=== PATIENT | female | born 1950 | race Hispanic/Latino ===

== ENCOUNTER 2022-10-10 23:07 | Inpatient (IN) | payer OTHER ==
[2022-10-10] MEDS ORDERED: Boostrix 0.5 ML (Tdap) VIAL (>/=7 yrs of age) ONE (23:42)
[2022-10-10] MEDS ORDERED: Morphine 4 MG/ML VIAL ONE (23:42)
[2022-10-10] MEDS ORDERED: Ondansetron PF 4 MG/2 ML Vial ONE (23:42)
[2022-10-11 00:27] LABS: #Basophils 0.1 thou/uL (0.0-0.2); #Eosinphils 0.1 thou/uL (0.0-0.7); #Lymphocytes 1.8 thou/uL (1.20-3.40); #Monocytes 0.5 thou/uL (0.11-0.59); #Neutrophils 7.5 thou/uL (1.40-6.50); %Basophils 0.6 % (0.0-1.0); %Eosinophils 1.3 % (0.0-10.0); %Lymphocytes 18.3 % (21.0-51.0); %Monocytes 4.6 % (0.0-10.0); %Neutrophils 75.2 % (42.0-75.0); Hemoglobin 14.1 g/dL (12.0-16.0); Mean Corpuscular HGB CONC 33.5 g/dL (32.0-36.0); Mean Corpuscular Hemoglobin 33.8 pg (27.0-31.0); Mean Platelet Volume 6.9 fL (7.4-10.4); Platelet Count 263 10x3/uL (130-400); RBC Distribution Width 11.7 % (11.5-14.5); Red Blood Cell (RBC) Count 4.17 mill/uL (4.20-5.40); White Blood Cell (WBC) Count 9.9 10x3/uL (4.8-10.8)
[2022-10-11] MEDS ORDERED: Lidocaine 1% (PF) 30 ML VIAL ONE (00:36)
[2022-10-11 00:38] LABS: INR-International Normal Ratio 0.9; PTT 26.5 sec (22.9-36.1); Prothrombin Time 12.6 sec (12.0-14.7)
[2022-10-11 00:47] LABS: Acetaminophen Less than 10.0 mcg/mL (10.0-30.0); Alcohol 280 mg/dL (Less than 10); Salicylate Less than 8.0 mg/dL (15.0-30.0)
[2022-10-11 00:48] LABS: ALT (SGPT) 27 U/L (8-55); AST (SGOT) 28 U/L (5-34); Albumin 4.3 g/dL (3.4-4.8); Alkaline Phosphatase 104 U/L (40-110); Anion Gap 11 mmol/L (10-20); BUN (Urea Nitrogen) 6 mg/dL (9.8-20.1); Bilirubin, Total 0.3 mg/dL (0.2-1.2); Calc. Creatinine Clearance 0 mL/min (70-130); Calcium 8.3 mg/dL (7.8-10.44); Carbon Dioxide 28 mmol/L (23-31); Chloride 103 mmol/L (98-107); Estimated GFR 97; Glucose 112 mg/dL (80-115); Potassium 3.3 mmol/L (3.5-5.1); Protein, Total 7.3 g/dL (5.8-8.1); Sodium 139 mmol/L (136-145)
[2022-10-11] MEDS ORDERED: Bupivacaine 0.25% 10 ML VIAL ONE (01:17)
[2022-10-11] MEDS ORDERED: Ondansetron ODT 4 MG TAB PO PRN (01:27)
[2022-10-11] MEDS ORDERED: Dextrose 50% Abboject 50 ML SYRINGE SLOW IVP PRN (01:27)
[2022-10-11] MEDS ORDERED: Dextrose 5% in Water 1,000 ML IV PRN (01:27)
[2022-10-11] MEDS ORDERED: TETANUS, DIPHTHERIA TOX,ADULT (TDVAX) 0.5 ML VIAL IM ONE (01:27)
[2022-10-11] MEDS ORDERED: hydrALAZINE 20 MG/ML VIAL SLOW IVP PRN (01:35)
[2022-10-11 02:10] LABS: Magnesium 2.1 mg/dL (1.6-2.6); Phosphorus 2.2 mg/dL (2.3-4.7)
[2022-10-11 02:30] LABS: SARS-CoV-2 NAA Rapid Test Not Detected (NotDetected)
[2022-10-11] MEDS: Potassium Chloride 20 MEQ in Premix Bag 1 BAG IVPB SCH ×2 (03:21→04:43)
[2022-10-11] MEDS: Sodium Chloride 0.9% 1,000 ML IV SCH ×2 (03:21→10:26)
[2022-10-11] MEDS: Acetaminophen/Codeine 30-300mg Tablet PO PRN ×2 (03:22→21:21)
[2022-10-11 03:55] VITALS: BMI 31.1
[2022-10-11 04:39] LABS: Amphetamine Not Detected (NotDetected); Barbiturates Screen Not Detected (NotDetected); Benzodiazepine Screen Not Detected (NotDetected); Cocaine Metabolite Screen Not Detected (NotDetected); Methadone Not Detected (NotDetected); Methamphetamine Not Detected (NotDetected); Opiate Screen Detected (NotDetected); Oxycodone Screen Not Detected (NotDetected); Phencyclidine (PCP) Not Detected (NotDetected); THC/Cannabinoid Screen Detected (NotDetected); Tricyclic Screen Not Detected (NotDetected)
[2022-10-11] MEDS: Acetaminophen 325 MG TAB PO SCH ×4 (04:44→23:40)
[2022-10-11] MEDS: Oxazepam 10 MG CAP PO SCH ×3 (04:44→21:22)
[2022-10-11 04:46] LABS: Bacteria/HPF None Seen HPF (None Seen); Bilirubin Negative (Negative); Blood, Urine 1+ (Negative); Clarity Clear (Clear); Glucose, Urine (Dipstick) 30 mg/dL (Negative); Ketone, Urine Negative (Negative); Leukocyte Negative Leu/uL (Negative); Nitrite Negative (Negative); Protein, Urine (Dipstick) Negative (Neg-Trace); RBC/HPF 0-3 HPF (0-3); Squamous Epithelial 0-3 HPF (0-3); Urobilinogen Normal mg/dL (Less than 2); WBC/HPF None Seen HPF (0-3); pH, Urine 7.5 (5.0-9.0)
[2022-10-11] MEDS ORDERED: CEFAZOLIN 2 GM in Sodium Chloride 0.9% 100 ML IVPB SCH ×2 (08:15→14:00)
[2022-10-11] MEDS ORDERED: Acetaminophen/Codeine 30-300mg Tablet PO SCH (08:45)
[2022-10-11] MEDS ORDERED: Morphine 2 MG/ML VIAL SLOW IVP PRN (08:58)
[2022-10-11] MEDS: Multivitamin W/ Minerals 1 TAB PO SCH (09:21)
[2022-10-11] MEDS: Famotidine/PF 20 mg/2ml Vial SLOW IVP SCH ×2 (09:21→21:22)
[2022-10-11] MEDS: Folic Acid/Vit B Comp W-C PO SCH (09:22)
[2022-10-11] MEDS: Thiamine 100 MG TAB PO SCH (09:22)
[2022-10-11] MEDS ORDERED: Morphine 4 MG/ML VIAL SLOW IVP PRN (09:33)
[2022-10-11] MEDS: Ondansetron PF 4 MG/2 ML Vial IVP PRN ×2 (10:59→18:01)
[2022-10-11] MEDS ORDERED: fentaNYL PF 100 MCG/2 ML SYRINGE ONE (12:22)
[2022-10-11] MEDS ORDERED: Famotidine/PF 20 mg/2ml Vial ONE (12:50)
[2022-10-11] MEDS ORDERED: Ondansetron PF 4 MG/2 ML Vial ONE (12:54)
[2022-10-11] MEDS ORDERED: Ketorolac Tromethamine 30 MG/ML VIAL ONE (12:54)
[2022-10-11] MEDS ORDERED: PROPOFOL 200 MG/20 ML VIAL ONE (12:54)
[2022-10-11] MEDS ORDERED: Dexamethasone 20 MG/5 ML VIAL ONE (12:54)
[2022-10-11] MEDS ORDERED: Metoclopramide HCl 10 MG/2 ML VIAL ONE (12:54)
[2022-10-11] MEDS ORDERED: Bupivacaine HCl 0.5%/Epinephrine 1:200,000/PF 30 ml Vial ONE (13:07)
[2022-10-11] MEDS ORDERED: Ondansetron HCl/PF 4 MG/2 ML Vial IVP PRN (14:01)
[2022-10-11] MEDS ORDERED: Promethazine HCl 25 MG/ML VIAL IM PRN (14:01)
[2022-10-11] MEDS ORDERED: Promethazine HCl 25 MG/ML VIAL IVPB PRN (14:01)
[2022-10-11] MEDS ORDERED: HYDROmorphone 2 MG/ML VIAL SLOW IVP PRN (14:01)
[2022-10-11] MEDS ORDERED: FENTANYL 50 MCG/ML 1 ML VIAL ONE ×3 (14:34→16:35)
[2022-10-11] MEDS: CEFAZOLIN 2 GM in Sodium Chloride 0.9% 100 ML IVPB SCH (21:23)
[2022-10-11] MEDS ORDERED: Promethazine HCl 12.5 MG in Sodium Chloride 0.9% 50 ML IVPB SCH (22:30)
[2022-10-12] MEDS: Oxazepam 10 MG CAP PO SCH ×3 (05:19→21:57)
[2022-10-12] MEDS: Acetaminophen 325 MG TAB PO SCH ×4 (05:19→20:40)
[2022-10-12] MEDS: CEFAZOLIN 2 GM in Sodium Chloride 0.9% 100 ML IVPB SCH (05:19)
[2022-10-12 05:50] LABS: #Lymphocytes 1.3 thou/uL (1.20-3.40); #Monocytes 0.9 thou/uL (0.11-0.59); #Neutrophils 6.4 thou/uL (1.40-6.50); %Basophils 0.3 % (0.0-1.0); %Eosinophils 0.1 % (0.0-10.0); %Lymphocytes 15.5 % (21.0-51.0); %Monocytes 9.8 % (0.0-10.0); %Neutrophils 74.2 % (42.0-75.0); Hemoglobin 12.4 g/dL (12.0-16.0); Mean Corpuscular HGB CONC 32.9 g/dL (32.0-36.0); Mean Corpuscular Hemoglobin 33.6 pg (27.0-31.0); Platelet Count 245 10x3/uL (130-400); RBC Distribution Width 11.8 % (11.5-14.5); Red Blood Cell (RBC) Count 3.69 mill/uL (4.20-5.40); White Blood Cell (WBC) Count 8.6 10x3/uL (4.8-10.8)
[2022-10-12 06:51] LABS: Anion Gap 11 mmol/L (10-20); BUN (Urea Nitrogen) 9 mg/dL (9.8-20.1); Calc. Creatinine Clearance 122 mL/min (70-130); Calcium 8.3 mg/dL (7.8-10.44); Carbon Dioxide 25 mmol/L (23-31); Chloride 105 mmol/L (98-107); Estimated GFR 95; Glucose 119 mg/dL (80-115); Magnesium 1.8 mg/dL (1.6-2.6); Phosphorus 2.7 mg/dL (2.3-4.7); Potassium 3.9 mmol/L (3.5-5.1); Sodium 137 mmol/L (136-145)
[2022-10-12] MEDS ORDERED: Magnesium 2 GM/50 ML(in water) 2 GM in Premix Bag 1 BAG IVPB SCH (07:45)
[2022-10-12] MEDS ORDERED: PHOS-NAK 1 PKT PACK PO SCH (07:45)
[2022-10-12] MEDS: Famotidine/PF 20 mg/2ml Vial SLOW IVP SCH (08:36)
[2022-10-12] MEDS: DULoxetine 60 MG CAP PO SCH (08:36)
[2022-10-12] MEDS: Losartan 25 MG TAB PO SCH (08:36)
[2022-10-12] MEDS: Multivitamin W/ Minerals 1 TAB PO SCH (08:37)
[2022-10-12] MEDS: Folic Acid/Vit B Comp W-C PO SCH (08:37)
[2022-10-12] MEDS: Amlodipine 5 MG TAB PO SCH (08:37)
[2022-10-12] MEDS: Thiamine 100 MG TAB PO SCH (08:37)
[2022-10-12] MEDS: Acetaminophen/Codeine 30-300mg Tablet PO PRN ×2 (12:34→18:04)
[2022-10-13] MEDS: Acetaminophen/Codeine 30-300mg Tablet PO PRN ×3 (00:41→14:45)
[2022-10-13] MEDS: Acetaminophen 325 MG TAB PO SCH ×2 (03:47→09:24)
[2022-10-13] MEDS: Oxazepam 10 MG CAP PO SCH ×2 (07:20→16:12)
[2022-10-13] MEDS: Multivitamin W/ Minerals 1 TAB PO SCH (09:18)
[2022-10-13] MEDS: Thiamine 100 MG TAB PO SCH (09:18)
[2022-10-13] MEDS: Folic Acid/Vit B Comp W-C PO SCH (09:19)
[2022-10-13] MEDS: Amlodipine 5 MG TAB PO SCH (09:19)
[2022-10-13] MEDS: DULoxetine 60 MG CAP PO SCH (09:19)
[2022-10-13] MEDS: Losartan 25 MG TAB PO SCH (09:19)
[2022-10-13 16:27] VITALS: BP 118/61; TEMP 98.2
[2022-10-14] MEDS ORDERED: FLU VACC QS2022-23(65YR UP)/PF 240 MCG/0.7 ML SYRINGE IM ONE (09:00)
== END 2022-10-13 17:10 | disposition home or self-care (01) | DRG 510 ==
LOC: ERS 23:07 → CCU 10-11 01:32 → SURG B 10-11 19:58
PROVIDERS: ADMIT Surgery; ATTEND Surgery
PROC: 0PSH04Z Reposition Right Radius with Internal Fixation Device, Open Approach (ICD-10-PCS; principal; 2022-10-11)
PROC: 0HQ0XZZ Repair Scalp Skin, External Approach (ICD-10-PCS; 2022-10-11)
DX: S52.501A Unspecified fracture of the lower end of right radius, initial encounter for closed fracture (principal); S06.5XAA Traumatic subdural hemorrhage with loss of consciousness status unknown, initial encounter; W01.0XXA Fall on same level from slipping, tripping and stumbling without subsequent striking against object, initial encounter; Z96.631 Presence of right artificial wrist joint; S01.01XA Laceration without foreign body of scalp, initial encounter; F10.129 Alcohol abuse with intoxication, unspecified; Y90.8 Blood alcohol level of 240 mg/100 ml or more; E87.6 Hypokalemia; E83.39 Other disorders of phosphorus metabolism; I48.91 Unspecified atrial fibrillation; Z79.899 Other long term (current) drug therapy
CPT/HCPCS: 25605; 36415; 36416; 70450; 71045; 72125; 80048; 80053; 80306; 80307; 81003; 81015; 83735; 84100; 85025; 85610; 85730; 90471; 90715; 96374; 96375; C1713; G0390; J0360; J1100; J1885; J2001; J2270; J2405; J2550; J2704; J2765; J3010; J3475; J3480; J3490; J7050; Q0162; S0020; S0028; U0002